=== PATIENT | female | born 1980 | race Two or more races ===

== ENCOUNTER 2017-01-18 22:34 | Emergency (ER) | payer MEDICAID ==
[~2017-01-18] VITALS: Ht 160 cm; Wt 52.6 kg
[2017-01-18 22:50] VITALS: BP 132/80
[2017-01-18 23:07] LABS: APPEARANCE,URINE VERY CLOUDY; KETONES,URINE NEGATIVE (NEGATIVE); LEUKOCYTE ESTERASE ,URINE 3+ (NEGATIVE); NITRITE,URINE NEGATIVE (NEGATIVE); PH,URINE 5 (4.5-8.0); PROTEIN,URINE 4+ (NEGATIVE); UROBILINOGEN,URINE NORMAL MG/DL (0.0-1.0)
[2017-01-18 23:08] LABS: RBC,URINE TNTC /HPF (0 - 2); WBC,URINE TNTC /HPF (0 - 2)
[2017-01-18 23:09] LABS: BACTERIA,URINE MODERATE /HPF; SQUAMOUS EPITHELIAL CELL,UR FEW /LPF (NONE/OCC)
[2017-01-18 23:10] LABS: RENAL EPITHELIAL CELLS,URINE FEW /LPF
[2017-01-18] MEDS ORDERED: KEFLEX500 MG ORAL (23:18)
[2017-01-18] MEDS ORDERED: PHENAZOPYRIDIN100 MG ORAL (23:18)
[2017-01-18 23:30] VITALS: BP 132/80
--- NOTE | 2017-01-19 04:19 | Emergency Room Report ---
History of Present Illness General Chief Complaint: Female Urogenital Problems Source: Patient Present Illness HPI 36-year-old female presents ED complaining of dysuria x1 day. Patient notes burning sensation with urination, 5/10, nonradiating. No fevers or chills. Denies flank pain. Denies nausea or vomiting. No aggravating factors. Denies any other associated symptoms Allergies: Coded Allergies: No Known Allergies (Unverified , 01/18/17) Patient History Past Medical History: none Past Surgical History: none Pertinent Family History: none Social History: Denies: smoking, alcohol use, drug use Last Menstrual Period: 01/10/17 Now: No Immunizations: UTD Reviewed Nursing Documentation: PMH: Agreed, PSxH: Agreed Nursing Documentation-PMH Past Medical History: No Stated History Review of Systems All Other Systems: negative except mentioned in HPI Physical Exam Vital Signs Date Time Temp Pulse Resp B/P (MAP) Pulse Ox O2 Delivery O2 Flow Rate FiO2 01/18/17 22:42 98.4 98 16 130/85 99 Room Air Sp02 EP Interpretation: reviewed, normal General Appearance: no apparent distress, alert, GCS 15, non-toxic Head: normocephalic Eyes: bilateral eye normal inspection, bilateral eye PERRL ENT: normal ENT inspection Neck: normal inspection Respiratory: normal inspection Cardiovascular #1: normal inspection Gastrointestinal: normal inspection Rectal: deferred Genitourinary: no CVA tenderness Musculoskeletal: normal inspection Neurologic: alert, oriented x3, responsive, motor strength/tone normal, sensory intact, speech normal Psychiatric: judgement/insight normal, memory normal, mood/affect normal, no suicidal/homicidal ideation Skin: normal inspection Lymphatic: normal inspection Medical Decision Making Diagnostic Impression: Primary Impression: UTI (urinary tract infection) Qualified Codes: N39.0 - Urinary tract infection, site not specified; R31.9 - Hematuria, unspecified ER Course Hospital Course 36-year-old female presents to ED complaining of dysuria with suprapubic pain. Differential diagnoses include: UTI, cystitis, pyelonephritis Clinical course Patient placed on stretcher. After initial history and physical I ordered UA, urine . UA + bacteria. we will prescribe abx Diagnosis - UTI Stable and discharged home with prescriptions for Rx Keflex, pyridium. Instructed to followup with PMD. Return to ED if symptoms recur or worsen Labs Test 01/18/17 22:45 Urine Color Red Urine Appearance Very cloudy Urine pH 5 (4.5-8.0) Urine Specific Simpson 1.015 (1.005-1.035) Urine Protein 4+ (NEGATIVE) Urine Glucose (UA) Negative (NEGATIVE) Urine Ketones Negative (NEGATIVE) Urine Occult Blood 5+ (NEGATIVE) Urine Nitrite Negative (NEGATIVE) Urine Bilirubin Negative (NEGATIVE) Urine Urobilinogen Normal MG/DL (0.0-1.0) Urine Leukocyte Esterase 3+ (NEGATIVE) Urine RBC Tntc /HPF (0 - 2) Urine WBC Tntc /HPF (0 - 2) Urine Squamous Epithelial Cells Few /LPF (NONE/OCC) Urine Renal Epithelial Cells Few /LPF (NONE) Urine Bacteria Moderate /HPF (NONE) Urine HCG, Qualitative Negative Last Vital Signs Date Time Temp Pulse Resp B/P (MAP) Pulse Ox O2 Delivery O2 Flow Rate FiO2 01/18/17 23:30 98.6 78 16 132/80 98 Room Air Status: improved Disposition: HOME, SELF-CARE Condition: Stable Scripts Phenazopyridine Hcl* (PYRIDIUM*) 100 Mg Tablet 100 MG ORAL THREE TIMES A DAY, #10 TAB Prov: CURT GAMBLE M.D. 01/18/17 Cephalexin* (KEFLEX*) 500 Mg Capsule 500 MG ORAL Q6H, #28 CAP 0 Refills Prov: CURT GAMBLE M.D. 01/18/17 Referrals: [facility],REFERRING (PCP) Patient Instructions: Urinary Tract Infection CURT GAMBLE M.D. Jan 19, 2017 04:19
== END 2017-01-18 23:30 | disposition home or self-care (01) ==
LOC: EMR 23:05
DX: N39.0 Urinary tract infection, site not specified (principal); R31.9 Hematuria, unspecified
CPT/HCPCS: 81003; 81025; 87086; 87181; 99283